=== PATIENT | female | born 2000 | race Caucasian/White ===

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

== ENCOUNTER 2023-01-12 19:55 | Inpatient (IN) | payer OTHER ==
[~2023-01-12 19:55] MED LIST changes: +ASPIRIN81 MG PO; +AZESCO TABLET1 EACH PO; +BACTRIM DS TAB1 EACH PO; +CELEXA10 MG PO; +DOXYCYCLINE HY100 MG PO; +HYDROXYZINE PAM25 MG PO; +MACROBID 100 M100 MG PO; +PYRIDIUM200 MG PO
[2023-01-12 22:05] VITALS: BP 141/90
--- NOTE | 2023-01-14 08:17 | PR ---
[facility] [address] [place], [place] [address] Signed Progress Notes IP Datetime Report Generated by AMANDA: 01/14/2023 08:16 PROGRESS NOTES: [id number] Impression: Normal Progression of Labor Procedures: Artificial ROM Plan: Continue Present Management VITAL SIGNS: [id number] Vital Signs: Reviewed; Within Normal Limits VS Notable Details: intermittent elevated BP EXAM: [id number] Dilatation: 1.5 Effacement: 80 Station: -2 Contractions: irregular q 1-6 min MEMBRANES: [id number] Membranes Status: Ruptured Comments: S/p cytotec x 1, comfortable with epidural -progressing well, AROM performed -discussed plan to recheck in 2h or sooner if needed and discussed indications for pitocin. Discussed if continuing to contract with this frequency, IUPC would be placed prior to starting pitocin. Elevated BP, urine P:C ratio not sent to lab with other PreE labs on admission last night. Collected sample with placement of mcdaniel, sent, results pending. Patellar DTRs 3+ bilaterally with 1 beat clonus BL FETUS A: [id number] FHR Baseline: 130 Variability: Moderate 6-25bpm Accelerations: 15X15 Decelerations: None FHR Category: Category I Presentation: Vertex Comments on Fetus A: no evidence of acidemia FETUS B: [id number] Signing Physician: Bari Hernandez DO *Electronically Signed* 01/14/23 0816 BARI HERNANDEZ DO PATIENT NAME: GRAYSON ANGULO PROGRESS NOTE DATE OF : 02 PHYSICIAN: BARI HERNANDEZ DO RPT #: [id number] REPORT IS CONFIDENTIAL AND NOT TO BE RELEASED WITHOUT AUTHORIZATION
--- NOTE | 2023-01-15 09:11 | PR ---
[facility] [address] [facility] [place], [place] [address] Signed PP Progress Notes Datetime Report Generated by CPAbdelrahman: 01/15/2023 09:11 SUBJECTIVE: [id number] Pain: Within Normal Limits Nausea/Vomiting: Denies Vital Signs: [id number] Vital Signs: Reviewed; Within Normal Limits Cardiovascular: Not Done Respiratory: Not Done Abdomen/Uterus: Abnormal Lochia: Normal Vulva/Perineum: Not Done Breasts: Not Done CVA Tenderness: Not Done Extremities: Normal Incision: Not Applicable Progress: Normal Exam Comments: Fundus firm, NT @ U-2. H/H 10.1/30.1, WBC 9, plat 136k IMPRESSION/PLAN/PROCEDURES: [id number] Impression: Normal Progression Other Impression: BPs normalized, thrombocytopenia Plan: Continue Present Management Progress Notes: Doing well with improved BPs. Plat now 136 down from 159k. Will recheck in am but otherwise doing well. Signing Physician: Shelly Sebastian MD Copies: ~ *Electronically Signed* 01/15/23910 SHELLY SEBASTIAN MD PATIENT NAME: GRAYSON ANGULO PROGRESS NOTE DATE OF : 02 PHYSICIAN: SHELLY SEBASTIAN MD RPT #: [id number] REPORT IS CONFIDENTIAL AND NOT TO BE RELEASED WITHOUT AUTHORIZATION
== END 2023-01-16 10:55 | disposition home or self-care (01) | DRG 806 ==
LOC: FBCO 19:55 → FBC 21:07 → FBCO 21:26 → FBC 21:26
PROVIDERS: ADMIT Obstetrics & Gynecology; ATTEND Obstetrics & Gynecology
PROC: 10E0XZZ Delivery of Products of Conception, External Approach (ICD-10-PCS; principal; 2023-01-13)
PROC: 10907ZC Drainage of Amniotic Fluid, Therapeutic from Products of Conception, Via Natural or Artificial Opening (ICD-10-PCS; 2023-01-13)
PROC: 00HU33Z Insertion of Infusion Device into Spinal Canal, Percutaneous Approach (ICD-10-PCS; 2023-01-13)
PROC: 3E0R3BZ Introduction of Anesthetic Agent into Spinal Canal, Percutaneous Approach (ICD-10-PCS; 2023-01-13)
PROC: 3E0P7VZ Introduction of Hormone into Female Reproductive, Via Natural or Artificial Opening (ICD-10-PCS; 2023-01-13)
PROC: 3E0R3NZ Introduction of Analgesics, Hypnotics, Sedatives into Spinal Canal, Percutaneous Approach (ICD-10-PCS; 2023-01-13)
PROC: 0UQMXZZ Repair Vulva, External Approach (ICD-10-PCS; 2023-01-13)
DX: O13.4 Gestational [pregnancy-induced] hypertension without significant proteinuria, complicating childbirth (principal); O99.13 Other diseases of the blood and blood-forming organs and certain disorders involving the immune mechanism complicating the puerperium; Z37.0 Single live birth; D69.6 Thrombocytopenia, unspecified; Z67.20 Type B blood, Rh positive; Z20.822 Contact with and (suspected) exposure to COVID-19; O99.824 Streptococcus B carrier state complicating childbirth; O71.82 Other specified trauma to perineum and vulva; Z3A.38 38 weeks gestation of pregnancy
CPT/HCPCS: 01960; 36415; 59025; 80053; 81001; 82570; 83615; 84156; 84550; 85027; 86850; 86900; 86901; 87088; 87502; 96360; A9270; C9803; G0463; J2405; J2540; J2590; J2795; J3010; J7121; Q0177; U0003

== ENCOUNTER 2023-08-04 18:34 | Emergency (ER) | payer OTHER ==
[~2023-08-04] VITALS: Ht 152.4 cm; Wt 60.6 kg
--- OUTSIDE RECORDS SUMMARY | 2023-08-04 18:42 | XMS ---
PreManage Notification: GRAYSON ANGULO Security Senior Business Development Manager Events No recent Security Events currently on file CRITERIA MET - Group Notification CARE PROVIDERS VERONICA MARTI Manager Of Network 08/17/2018-Current PHONE: Unknown -[place]- Dentist[facility] PHONE: [phone] Shawanda Ventura Nurse Practitioner: Family [facility] PHONE: Unknown Kiera has no Care Guidelines for this patient. Care History Medical/Surgical 09/04/2019 [facility] - PATIENT CURRENTLY AT [facility]. 08/17/2018 [facility] SET UP AN APT WITH DR MARTI FOR PATIENT ON 08/22/18 @ 1:45. - PATIENT SISTER STATED PATIENT IS CONCERNED WITH HER INSURANCE. INSURANCE CAN BE REVIEWED AND SUBMITTED BY AN ASSISTER AT THE HOSPITAL PER CHW. - PATIENT SISTER STATED SHE WILL MAKE SURE PATIENT MAKES IT TO THE APT SCHEDULED. 08/14/2018 [facility] - [facility] RECEIVED ED PHYSICIAN CONSULT- HELP PATIENT SET UP WITH AN OBGYN FOR FOLLOW UP DUE TO POSITIVE . - CHW CALLED PATIENT NUMBER LISTED AND PHONE IS DISCONNECTED. - CHW LEFT A MESSAGE FOR PATIENT FATHER TO HAVE PATIENT CONTACT CHW. - IF PATIENT IS SEEN IN ED PLEASE PROVIDE CHW CONTACT NUMBER [phone]. E.D. VISIT COUNT (12 MO.) [address] TOTAL 5 NOTE: Visits indicate total known visits. ED/C VISIT TRACKING (12 MO.) 08/04/2023 18:36 DEBBIE Rolon [place] TYPE: Emergency COMPLAINT: - VAGINAL BLEEDING 12/14/2022 14:58 DEBBIE [place]on [place] TYPE: Emergency COMPLAINT: - COLD SYMPTOMS 11/15/2022 22:52 DEBBIE [place]on [place] TYPE: Emergency COMPLAINT: - CHEST PAIN DIAGNOSES: - 30 weeks gestation of - Allergy status to analgesic agent - terminal press operator (current) use of aspirin - Other terminal press operator (current) drug therapy - Other specified diseases and conditions complicating - Precordial pain - Unspecified infection of urinary tract in , third trimester - Urinary tract infection, site not specified - Vomiting of , unspecified 10/09/2022 17:39 [facility] [place] TYPE: Emergency COMPLAINT: - ABD PAIN DIAGNOSES: - ABD PAIN 08/09/2022 17:59 [facility] [place] TYPE: Emergency DIAGNOSES: - Generalized abdominal pain - Lower abdominal pain, unspecified - 16 WKS ABD PAIN INPATIENT VISIT TRACKING (12 MO.) 01/13/2023 18:29 DEBBIE Rolon [place] TYPE: [facility] COMPLAINT: - INDUCTION OF LABOR, GESTATIONAL HYPERTENSION DIAGNOSES: - 38 weeks gestation of - 38 weeks gestation of - Contact with and (suspected) exposure to COVID-19 - Contact with and (suspected) exposure to COVID-19 - Gestational [-induced] hypertension without significant proteinuria, complicating childbirth - Other diseases of the blood and blood-forming organs and certain disorders involving the immune mechanism complicating the puerperium - Other diseases of the blood and blood-forming organs and certain disorders involving the immune mechanism complicating the puerperium - Other specified trauma to perineum and vulva - Other specified trauma to perineum and vulva - Single live - 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
[2023-08-04 19:58] LABS: BASOPHILS 1.1 % (0-2); EOSINOPHILS 2.5 % (0-6); HEMATOCRIT 43.8 % (35.0-50.0); HEMOGLOBIN 14.9 g/dL (12.0-18.0); MCH 29.6 (27-36); MCV 87.1 fl (81-99); MONOCYTES 11.2 % (0-12); NEUTROPHILS 57.2 % (39-80); PLATELET COUNT 351 K/uL (140-440); RBC 5.03 M/ul (4.3-5.7); RDW 15.9 (10.5-15.0)
[2023-08-04 20:08] LABS: BILIRUBIN, URINE NEGATIVE (negative); BLOOD/HGB, URINE NEGATIVE (Negative); KETONE, URINE TRACE (Negative); LEUK ESTERASE, URINE NEGATIVE (negative); NITRITE, URINE NEGATIVE (negative); PH, URINE 6.5 (5-7)
[2023-08-04 20:28] LABS: ABO B; RH POSITIVE
[2023-08-04 20:35] LABS: ALBUMIN 3.6 g/dL (3.4-5.0); ALBUMIN/GLOBULIN RATIO 0.97 (1.1-2.4); ANION GAP 12.3 (7-21); BILIRUBIN, TOTAL 0.3 ng/dL (0.2-1.0); BUN/CREATININE RATIO 8.47 (6.0-28.6); CALCIUM 8.7 mg/dL (8.5-10.1); CREATININE, SERUM 0.59 mg/dL (0.55-1.02); POTASSIUM 3.3 mmol/L (3.5-5.1); PROTEIN, TOTAL 7.3 g/dL (6.4-8.2)
[2023-08-04 23:14] VITALS: BP 121/90
== END 2023-08-04 23:14 | disposition home or self-care (01) ==
LOC: ED 18:34
PROVIDERS: Family Medicine
DX: O20.9 Hemorrhage in early pregnancy, unspecified (principal); Z3A.01 Less than 8 weeks gestation of pregnancy
CPT/HCPCS: 36415; 76801; 76817; 80053; 81003; 84702; 84703; 85025; 86900; 86901; 99284-25; J7121